=== PATIENT | female | born 1955 | race Caucasian/White ===

== ENCOUNTER 2024-07-29 07:54 | Emergency (ER) | payer OTHER ==
[~2024-07-29] VITALS: Ht 160 cm; Wt 81.0 kg
[2024-07-29 08:15] VITALS: O2SAT 100
[2024-07-29] MEDS ORDERED: TOPUD PO (09:03)
[2024-07-29 09:51] VITALS: BP 125/71; PULSE 81; RESP 17; TEMP 36.89184; O2SAT 99
== END 2024-07-29 09:52 | disposition home or self-care (01) ==
LOC: ER 08:02
DX: M79.672 Pain in left foot (principal); M79.671 Pain in right foot; E11.9 Type 2 diabetes mellitus without complications; Z90.710 Acquired absence of both cervix and uterus
CPT/HCPCS: 73630; 99283

== ENCOUNTER 2024-10-20 06:51 | Emergency (ER) | payer OTHER ==
[~2024-10-20] VITALS: Ht 152.4 cm; Wt 74.7 kg
[~2024-10-20 06:51] MED LIST: TOPUD PO
[2024-10-20 06:57] VITALS: BP 121/68; PULSE 85; RESP 18; TEMP 36.9; O2SAT 98; O2SAT 99
== END 2024-10-20 09:19 | disposition home or self-care (01) ==
LOC: ER 06:51
DX: N64.89 Other specified disorders of breast (principal); E11.9 Type 2 diabetes mellitus without complications; E78.00 Pure hypercholesterolemia, unspecified; I10 Essential (primary) hypertension; Z90.710 Acquired absence of both cervix and uterus; Z90.13 Acquired absence of bilateral breasts and nipples
CPT/HCPCS: 99281

== ENCOUNTER 2025-01-14 09:00 | Emergency (ER) | payer OTHER ==
[~2025-01-14] VITALS: Ht 154.9 cm; Wt 76.2 kg
[2025-01-14 09:01] VITALS: O2SAT 100
[2025-01-14] MEDS: LIDOCAINE HCL/PF 1% 10 MG/ML 5ML VIAL INFIL ONE (10:00)
[2025-01-14] MEDS: BACITRACIN ZINC OINT UDPKT TOP ONE (10:00)
[2025-01-14 11:41] VITALS: BP 131/65; PULSE 88; RESP 16; TEMP 37.1; O2SAT 100
== END 2025-01-14 11:31 | disposition home or self-care (01) ==
LOC: ER 09:00
DX: S21.011A Laceration without foreign body of right breast, initial encounter (principal); Z90.13 Acquired absence of bilateral breasts and nipples; X58.XXXA Exposure to other specified factors, initial encounter; Y93.89 Activity, other specified; Y92.89 Other specified places as the place of occurrence of the external cause; Y99.8 Other external cause status
CPT/HCPCS: 12001; 99282; J2003; Z7610

== ENCOUNTER 2025-01-22 18:10 | Emergency (ER) | payer OTHER ==
[~2025-01-22] VITALS: Ht 152.4 cm; Wt 76.2 kg
[2025-01-22 18:28] VITALS: BP 119/50; PULSE 83; RESP 16; TEMP 36.8; O2SAT 98
[2025-01-22] MEDS ORDERED: AMOX1TAB16 MT (20:25)
[2025-01-22] MEDS ORDERED: SULF1TAB48 MT (20:25)
== END 2025-01-22 20:52 | disposition home or self-care (01) ==
LOC: ER 18:10
DX: T81.30XA Disruption of wound, unspecified, initial encounter (principal); E11.9 Type 2 diabetes mellitus without complications; I10 Essential (primary) hypertension; E78.00 Pure hypercholesterolemia, unspecified; Z48.02 Encounter for removal of sutures; Z98.890 Other specified postprocedural states; Z79.899 Other long term (current) drug therapy; Z90.710 Acquired absence of both cervix and uterus; Z85.3 Personal history of malignant neoplasm of breast
CPT/HCPCS: 99283

== ENCOUNTER 2025-04-01 17:22 | Emergency (ER) | payer OTHER ==
[~2025-04-01] VITALS: Ht 157.5 cm; Wt 87.0 kg
[~2025-04-01 17:22] MED LIST changes: +AMOX1TAB16 MT; +SULF1TAB48 MT
[2025-04-01 17:35] VITALS: O2SAT 99
[2025-04-01 20:29] VITALS: BP 118/64; PULSE 100; RESP 18; TEMP 36.9; O2SAT 100
== END 2025-04-01 20:31 | disposition home or self-care (01) ==
LOC: ER 17:22
DX: S40.011A Contusion of right shoulder, initial encounter (principal); E11.9 Type 2 diabetes mellitus without complications; E78.00 Pure hypercholesterolemia, unspecified; I10 Essential (primary) hypertension; Z79.899 Other long term (current) drug therapy; Z98.890 Other specified postprocedural states; Z90.710 Acquired absence of both cervix and uterus; Z90.10 Acquired absence of unspecified breast and nipple; W18.30XA Fall on same level, unspecified, initial encounter; Y93.89 Activity, other specified; Y92.89 Other specified places as the place of occurrence of the external cause; Y99.8 Other external cause status
CPT/HCPCS: 73030; 73080; 99284

== ENCOUNTER 2025-08-18 09:41 | Emergency (ER) | payer OTHER ==
[~2025-08-18] VITALS: Ht 154.9 cm; Wt 82.0 kg
[2025-08-18 09:47] VITALS: O2SAT 100
[2025-08-18] MEDS: ACETAMINOPHEN 325MG TABLET PO ONE (10:24)
[2025-08-18 11:20] VITALS: BP 132/71; PULSE 92; RESP 16; TEMP 36.6; O2SAT 100
== END 2025-08-18 11:21 | disposition home or self-care (01) ==
LOC: ER 09:41
DX: M54.9 Dorsalgia, unspecified (principal); E11.9 Type 2 diabetes mellitus without complications; E78.00 Pure hypercholesterolemia, unspecified; I10 Essential (primary) hypertension; Z85.3 Personal history of malignant neoplasm of breast
CPT/HCPCS: 71045; 99285